=== PATIENT | female | born 1960 | race African-American/Black ===

== ENCOUNTER 2018-09-09 08:19 | Outpatient (CLI) | payer BC | END 2018-09-09 08:20 | disposition home or self-care (01) | LOC: BICMAMMO 08:19 | DX: Z12.31 Encounter for screening mammogram for malignant neoplasm of breast (principal) | CPT/HCPCS: 77063; 77067 ==

== ENCOUNTER 2021-05-26 13:01 | Outpatient (CLI) | payer BC | END 2021-05-26 13:02 | disposition home or self-care (01) | LOC: BICMAMMO 13:01 | PROVIDERS: ATTEND Family Medicine | DX: Z12.31 Encounter for screening mammogram for malignant neoplasm of breast (principal) | CPT/HCPCS: 77063; 77067 ==